=== PATIENT | female | born 1985 | race Caucasian/White ===

== ENCOUNTER 2023-08-19 18:59 | Emergency (ER) | payer OTHER ==
[~2023-08-19] VITALS: Ht 165.1 cm; Wt 93.4 kg
[2023-08-19 19:14] VITALS: BP_SYST 113; PULSE 81; RESP 18; TEMP 97.4; O2SAT 95
[2023-08-19] MEDS ORDERED: DIPHTH,PERTUSS(ACELL),TET VAC 0.5 ML VIAL (Tdap) I.M. ONE (20:00)
[2023-08-19] MEDS ORDERED: BACITRACIN 1 GM OINT TP ONE (20:00)
[2023-08-19 20:55] VITALS: BP_SYST 132; PULSE 84; RESP 18; TEMP 97.6; O2SAT 98
== END 2023-08-19 20:55 | disposition home or self-care (01) ==
LOC: SED 18:59
DX: S61.210A Laceration without foreign body of right index finger without damage to nail, initial encounter (principal); Z79.899 Other long term (current) drug therapy; W26.0XXA Contact with knife, initial encounter; Y93.89 Activity, other specified; Y92.89 Other specified places as the place of occurrence of the external cause; Y99.8 Other external cause status
CPT/HCPCS: 90715; 99283